=== PATIENT | female | born 1940 | race Caucasian/White ===

== ENCOUNTER 2021-01-26 18:04 | Emergency (ER) | payer OTHER, MEDICAID ==
[~2021-01-26] VITALS: Ht 149.9 cm; Wt 59.0 kg
[2021-01-26 18:24] VITALS: Ht 149.9 cm; Wt 59.0 kg
[2021-01-26] MEDS ORDERED: MOT600 PO (21:27)
[2021-01-26 21:49] VITALS: BP 124/52
== END 2021-01-26 21:49 | disposition home or self-care (01) ==
LOC: ED 18:04
DX: G44.209 Tension-type headache, unspecified, not intractable (principal); I10 Essential (primary) hypertension; E11.9 Type 2 diabetes mellitus without complications
CPT/HCPCS: J1885